=== PATIENT | male | born 1970 | race Caucasian/White ===

== ENCOUNTER 2023-10-14 18:47 | Outpatient (CLI) | payer BC, SELFPAY ==
[2023-10-14 19:56] LABS: Basophils % 0.5 % (0.1-2.0); Eosinophils # 0.2 K/mm3 (0.0-0.4); Eosinophils % 2.2 % (0.1-12.0); Hematocrit 43.7 % (42.0-52.0); Hemoglobin 14.8 g/dL (14.1-18.0); Mean Corpuscular Hemoglobin 31.8 pg (27.0-31.2); Mean Corpuscular Volume 93.4 fl (80-94); Mean Platelet Volume 9.1 fl (7.4-10.4); Monocytes # 0.6 K/mm3 (0.1-1.0); Monocytes % 8.9 % (1.7-9.3); Neutrophils # 4.2 K/mm3 (1.8-7.8); Neutrophils % 60.4 % (37.0-80.0); Platelet Count 292 K/mm3 (142-424); Red Blood Count 4.68 M/mm3 (4.60-6.20); Red Cell Distribution Width 14.1 % (11.5-17.5)
[2023-10-14 20:21] LABS: Alanine Aminotransferase 38 U/L (12-78); Albumin Level 4.6 g/dl (3.5-5.0); Albumin/Globulin Ratio 1.8 (1.1-1.8); Alkaline Phosphatase 47 U/L (38-126); Anion Gap 11.4 mEq/L (5-15); Aspartate Amino Transferase 42 U/L (17-59); Bilirubin,Total 0.7 mg/dl (0.2-1.3); Blood Urea Nitrogen 20 mg/dl (9-20); Calcium 9.9 mg/dl (8.4-10.2); Carbon Dioxide 24 mmol/L (22.0-30.0); Chloride 107 mmol/L (98-107); Chol/HDL Ratio 3.3 (1-3.5); Cholesterol 167 mg/dl (140-200); Estimated Glomerular Filt Rate 118 ml/min (>60); GFR (African American) 143 ML/MIN (>60); Globulin 2.5 g/dL (1.3-3.2); Glucose 99 mg/dl (74-100); HDL Cholesterol 50 mg/dl (40-60); Potassium 4.4 mmoL/L (3.5-5.1); Sodium 138 mmol/L (136-145); Total Protein,Serum 7.1 g/dl (6.3-8.2); Triglycerides 90 mg/dl (30-150); VLDL Cholesterol 18 mg/dL (0-40)
[2023-10-14 20:33] LABS: Direct LDL Cholesterol 94.69 mg/dL (100-129)
[2023-10-14 20:52] LABS: Prostate Specific Ag Screen 1.1 ng/ml (0.0-4.0); Thyroid Stimulating Hormone 2.11 uIU/mL (0.465-4.68)
[2023-10-14 21:27] LABS: Vitamin B12 374 pg/mL (239-931)
[2023-10-14 21:31] LABS: Folate 7.57 ng/mL
[2023-10-14 21:38] LABS: Hemoglobin A1C 5.4 % (4.0-6.0)
[2023-10-24 02:52] LABS: 1,25 Dihydroxy Vitamin D 78 pg/mL (.); 1,25-Dihydroxy, Vitamin D-2 <10 pg/mL (.); 1,25-Dihydroxy, Vitamin D-3 78 pg/mL (.)
== END 2023-10-14 23:59 | disposition home or self-care (01) ==
LOC: LAB.DROPOF 18:51
PROVIDERS: PCP Internal Medicine; Visit Provider Internal Medicine
DX: R53.83 Other fatigue (principal)
CPT/HCPCS: 80050; 80053; 80061; 82043; 82607; 82652; 82746; 83036; 84443; 85025; G0103

== ENCOUNTER 2023-10-14 18:51 | Outpatient (CLI) | payer BC, SELFPAY | END 2023-10-14 23:59 | disposition home or self-care (01) | LOC: LAB.DROPOF 18:52 | PROVIDERS: PCP Internal Medicine; Visit Provider Internal Medicine | DX: Z02.9 Encounter for administrative examinations, unspecified (principal) ==

== ENCOUNTER 2023-12-14 14:54 | Outpatient (CLI) | payer BC, SELFPAY ==
[2023-12-14 16:19] LABS: Blood Urea Nitrogen 17 mg/dl (9-20); Estimated Glomerular Filt Rate 102 ml/min (>60); GFR (African American) 123 ML/MIN (>60)
[2023-12-16 12:39] LABS: PSA, Free 0.63 ng/mL; Prostate Specific Ag 4.5 ng/mL (0.0-4.0); Sex Hormone Binding Globulin 51.1 nmol/L (19.3-76.4); Testosterone,Total 449 ng/dL (264-916)
== END 2023-12-14 23:59 | disposition home or self-care (01) ==
LOC: LAB 14:56
PROVIDERS: PCP Internal Medicine; Visit Provider Urology
DX: N52.9 Male erectile dysfunction, unspecified (principal); N40.0 Benign prostatic hyperplasia without lower urinary tract symptoms; R53.83 Other fatigue
CPT/HCPCS: 36415; 82565; 84153; 84154; 84270; 84403; 84520

== ENCOUNTER 2024-01-20 11:59 | Outpatient (CLI) | payer BC, SELFPAY ==
[2024-01-21 11:15] LABS: PSA, Free 0.48 ng/mL; Prostate Specific Ag 1.8 ng/mL (0.0-4.0)
== END 2024-01-20 23:59 | disposition home or self-care (01) ==
LOC: LAB 12:04
PROVIDERS: PCP Internal Medicine; Visit Provider Urology
DX: N40.0 Benign prostatic hyperplasia without lower urinary tract symptoms (principal)
CPT/HCPCS: 36415; 84153; 84154

== ENCOUNTER 2024-10-18 16:32 | Outpatient (CLI) | payer BC, SELFPAY | END 2024-10-18 23:59 | disposition home or self-care (01) | LOC: LAB.DROPOF 16:33 | PROVIDERS: PCP Internal Medicine; Visit Provider Internal Medicine | DX: J02.9 Acute pharyngitis, unspecified (principal) | CPT/HCPCS: 87070 ==

== ENCOUNTER 2024-12-28 08:53 | Day surgery (SDC) | payer BC, SELFPAY ==
[2024-12-26 15:33] VITALS: BMI 33.2
--- NOTE | 2024-12-27 16:47 | EXP.HP ---
History of Present Illness *Admission Date: 12/28/24 *History of present illness: Mr. Huerta is a 54-year-old gentleman who is here for screening colonoscopy. The patient did have a negative Cologuard 4 to 5 years ago. His father had bladder cancer. The examination is deemed medically necessary for screening colonoscopy. The patient has been seen, interviewed and examined prior to the procedure by both myself and the anesthesia provider. [facility] Disclaimer: The information contained in this section may have been updated after the patient was seen, as this information can be updated by other users. Medical History Sleep apnea treated with continuous positive airway pressure (CPAP) Surgical History H/O wrist surgery H/O hernia repair Family History Mother Cancer Father Afib Cancer Heart problem Social History Smoking Status: Never smoker alcohol intake: current substance use type: denies use current occupational status: employed Travel in the last 8 weeks?: None caffeine: Yes Have you lived/traveled outside [place] in past 30 days?: No Contact w/someone who lives/traveled outside [place] past 30 days?: No Exposure to someone with infectious disease in past 14 days?: No Do you have a fever (greater than 100.4 F or 38 C)?: No Have you tested positive for COVID-19?: No Exposed to someone with COVID-19 in past 14 days?: No Do you have a sore throat?: No Do you have a cough?: No Do you have any weakness?: No Are you experiencing any nausea/vomitting?: No Do you have any diarrhea?: No Are you experiencing any unusual bleeding?: No Do you have any muscle aches/pain?: No Do you have any abdominal pain?: No Are you experiencing loss of taste or smell?: No Review of Systems Review of Systems Review of systems (narrative): Negative *Cardiovascular Comments: Negative *Gastrointestinal Comments: Negative *Genitourinary Comments: Negative *Musculoskeletal Comments: Negative *Neurologic Comments: Negative Meds Home Medications and Allergies Home Medications ?Medication ?Instructions ?Recorded ?Confirmed ?Type rosuvastatin 40 mg tablet 40 mg PO DAILY #30 tabs 10/18/24 12/28/24 Rx tadalafil 5 mg tablet (Cialis) 5 mg PO DAILY 90 days #90 tabs 10/18/24 12/28/24 Rx valerian root 400 mg-valerian root 1 cap PO DAILY 10/18/24 12/28/24 History extract 110 mg capsule sodium,potassium,mag sulfates 17.5 See Rx Instructions PO .COMPLEX 12/14/24 12/28/24 Rx gram-3.13 gram-1.6 gram oral soln #354 mL (Suprep Bowel Prep Kit) New Prescriptions to Start Prescriptions: Allergies Allergy/AdvReac Type Severity Reaction Status Date / Time poison tom extract Allergy Mild Hives Verified 12/28/24 09:06 poison oak extract Allergy Mild Hives Verified 12/28/24 09:06 Exam Data for Last 24 hours I & O for Last 24 hours: Intake & Output 12/24/24 12/25/24 12/26/24 12/27/24 23:59 23:59 23:59 23:59 Weight 238 lb *Routine HEENT Exam Head: Present normocephalic Eye: Present EOMI and PERRL ENT: Present mucous membranes moist *Routine Neck Exam Neck: Present supple *Routine Respiratory Exam Respiratory: Present CTA bilaterally *Routine Cardiovascular Exam Cardiovascular: Present RRR *Routine Abdominal Exam Abdominal: Present soft and normoactive bowel sounds; Absent tenderness *Routine Rectal Exam Rectal:: deferred *Routine Genitalia Exam Genitalia:: deferred *Routine Extremities Exam Extremities: Absent cyanosis, clubbing or edema *Routine Skin Exam Skin: Present warm; Absent rash *Routine Neurological Exam Neurological: Present alert and oriented X3 Assessment and Plan *Assessment and plan (1) Screening for colorectal cancer: Status: Acute Category: Medical Code(s): Z12.11 - Encounter for screening for malignant neoplasm of colon; Z12.12 - Encounter for screening for malignant neoplasm of rectum Plan A/P: 1. Screening for colon cancer is the preprocedural diagnosis. The patient will be anesthetized/sedated using MAC sedation. The patient has been seen and examined. Cardiac and lung assessment prior to the examination is stable. Proceed with planned screening colonoscopy.
--- NOTE | 2024-12-28 07:09 | HMH.PROCNOTE ---
[facility] Procedure Note Date: 12/28/24 Time: 10:00 Procedure Note:: Colonoscopy Procedure Report: Colonoscopy with cold snare polypectomy Endoscopist: Rubin Butler II, MD Referring physician: Pop Negron DO Date of Procedure: December 28, 2024 Equipment: Olympus [id number] adult colonoscope Sedation: MAC sedation Indication: Mr. Huerta is a 54-year-old gentleman who is here for initial screening colonoscopy. The patient reports no abdominal pain, weight loss, change in his bowel habits or rectal bleeding. He reports no family history of colon cancer. The patient did have a negative Cologuard 4 to 5 years ago. His father had bladder cancer. The examination is deemed medically necessary for screening colonoscopy. Procedure: Prior to the procedure, a history and physical exam was performed, and patient's medications and allergies were reviewed. The risks, benefits and alternatives of the sedation and procedure were discussed with the patient. All questions were answered and informed consent was obtained. The patient was brought to the procedure room. Patient identification and proposed procedure were verified by the physician and the nurse. The patient was placed in a left lateral decubitus position and the scope was passed under direct vision. Throughout the procedure, the patient's blood pressure, pulse, and oxygen saturations were monitored continuously. The colonoscopy was accomplished without difficulty. The patient tolerated the procedure well. Findings: On digital rectal examination there was normal rectal tone. There were no external hemorrhoids. The prostate was 2+, mildly firm but symmetric without nodules. The colonoscope was introduced through the anal canal to the rectum and advanced to the cecum. The ileocecal valve and appendiceal orifice were identified. The scope was advanced a short distance into the ileum which appeared grossly normal. The scope was then withdrawn into the colon. There was a single 8 mm polyp in the ascending colon removed via cold snare polypectomy. The remaining cecum, ascending and transverse colon and mucosa were grossly normal. There were scattered diverticuli throughout the descending and sigmoid colon (LEFT colon). The rectum itself was normal. Upon retroflexion within the rectum there were grade 1-2 internal hemorrhoids. The preparation was excellent throughout with [place] Preparation Score of 9. The cecal time was 12 minutes. Impression: 1. Ascending colon polyp (8 mm) 2. Left-sided diverticulosis 3. Grade 1-2 internal hemorrhoids Plan: I will follow-up the polyp histology and recommend repeat screening/surveillance colonoscopy again in 7 years. I would encourage psyllium bulking fiber supplementation on a maintenance basis.
[2024-12-28 09:00] VITALS: BP 115/65; PULSE 63; RESP 18; TEMP 36.6; O2SAT 97
[2024-12-28] MEDS: LACTATED RINGERS 1000ML 1,000 ML 50 ML IV (09:15)
--- NOTE | 2024-12-28 09:20 | P.PNANES_ITS ---
[facility] Disclaimer: The information contained in this section may have been updated after the patient was seen, as this information can be updated by other users. Medical History Sleep apnea treated with continuous positive airway pressure (CPAP) Surgical History H/O wrist surgery H/O hernia repair Family History Mother Cancer Father Afib Cancer Heart problem Social History Smoking Status: Never smoker alcohol intake: current substance use type: denies use current occupational status: employed Travel in the last 8 weeks?: None caffeine: Yes Have you lived/traveled outside [place] in past 30 days?: No Contact w/someone who lives/traveled outside [place] past 30 days?: No Exposure to someone with infectious disease in past 14 days?: No Do you have a fever (greater than 100.4 F or 38 C)?: No Have you tested positive for COVID-19?: No Exposed to someone with COVID-19 in past 14 days?: No Do you have a sore throat?: No Do you have a cough?: No Do you have any weakness?: No Are you experiencing any nausea/vomitting?: No Do you have any diarrhea?: No Are you experiencing any unusual bleeding?: No Do you have any muscle aches/pain?: No Do you have any abdominal pain?: No Are you experiencing loss of taste or smell?: No [facility] Anesthesia Checklist Patient Identification Patient Identification: Arm Band and Verbal (Name & ) Structural Data Admitted From: Home Planned Operative Procedure/s: colonscopy Consent for Planned Operative Procedure(s) Verified: Yes Verified Documents: Surgical Consent and History and Physical NPO Status Verified Time NPO: 00:00 Additional verifications Anesthesia Reactions: No Previous Colonoscopy: No Airway Assessment Mallampati Score:: Class II Dentition: Good Dentition Neurological Assessment Level of Consciousness: Awake, Alert and Appropriate Hx Seizures: No Numbness or tingling in extremities: No Anesthesia Plan Anesthesia Risk discussed: Yes Anesthesia Plan: Verified ASA Class: II Anesthesia Type: MAC
[2024-12-28 10:02] VITALS: BP 120/47; PULSE 71; RESP 18; TEMP 36.4; O2SAT 95
[2024-12-28 10:12] VITALS: BP 115/73; PULSE 73; RESP 18; O2SAT 96
[2024-12-28 10:22] VITALS: BP 129/77; PULSE 80; RESP 18; O2SAT 96
[2024-12-28 10:32] VITALS: BP 133/77; PULSE 66; RESP 18; O2SAT 96
== END 2024-12-28 10:40 | disposition home or self-care (01) ==
PROVIDERS: PCP Internal Medicine; Visit Provider Internal Medicine Gastroenterology
PROC: 0DJD8ZZ Inspection of Lower Intestinal Tract, Via Natural or Artificial Opening Endoscopic (ICD-10-PCS; CPT 45378; principal; 2024-12-28 10:30)
DX: Z12.11 Encounter for screening for malignant neoplasm of colon (principal); Z12.12 Encounter for screening for malignant neoplasm of rectum; D12.2 Benign neoplasm of ascending colon; K57.30 Diverticulosis of large intestine without perforation or abscess without bleeding; K64.0 First degree hemorrhoids; K64.1 Second degree hemorrhoids
CPT/HCPCS: 45385; J2003; J2704; J7120